=== PATIENT | female | born 1995 | race African-American/Black ===

== ENCOUNTER 2022-11-27 14:25 | Emergency (ER) | payer BC, SELFPAY ==
[2022-11-27 14:46] VITALS: BP 132/70; PULSE 76; RESP 16; TEMP 36.8; O2SAT 100
[2022-11-27 14:59] VITALS: BP 132/70; PULSE 76; RESP 16; TEMP 36.8; O2SAT 100
--- NOTE | 2022-11-27 15:26 | ED.WOUNDLAC ---
HPI - Wound/Laceration General Chief Complaint: Wound/Laceration Stated Complaint: Bee sting Time Seen by Provider: 11/27/22 15:27 Source: patient Mode of arrival: ambulatory Limitations: no limitations History of Present Illness HPI narrative: 27-year-old female presented for complaint of left hand swelling after she was stung by bee today. Stung near the wrist. She took benadryl, and swelling is better. Patient showed pictures from immediately after the sting and has notable swelling with raised area at center. Patient reports tenderness and difficulty making fist due to the swelling. Denies numbness, tingling, weakness of the extremities. She denies lip, tongue, throat swelling or itching, shortness of breath or wheezing, nausea or vomiting. Related Data Allergies Allergy/AdvReac Type Severity Reaction Status Date / Time No Known Allergies Allergy Unverified 11/27/22 14:36 Review of Systems Review of Systems: CONSTITUTIONAL: Denies body aches, fever, chills, or sweats. EYES: Denies visual changes, redness, or discharge. ENT: Denies rhinorrhea, congestion CARDIOVASCULAR: Denies chest pain, palpitations, or edema. RESPIRATORY: Denies cough or dyspnea. GASTROINTESTINAL: Denies abdominal pain, nausea, vomiting, or diarrhea. SKIN: Per HPI MUSCULOSKELETAL: Denies back pain, joint pain, or myalgia. NEUROLOGIC: Denies headache, numbness, tingling, or weakness. [facility] Past Medical History Medical History (Updated 11/27/22 @ 16:39 by Nani Fisher, HE) No pertinent past medical history Comments At time of signature, I have reviewed and agree with nursing past medical, surgical, social and family history unless otherwise noted. Please see nursing chart for further information. There is no relevant family history pertinent to the presenting complaint Exam Narrative: GENERAL: Well-appearing HEAD: Normocephalic, atraumatic. EYES: conjunctivae clear, and EOMI. ENT: Mucous membranes moist. Oropharynx without edema, erythema or lesions. NECK: Supple. No lymphadenopathy CHEST: Clear to auscultation. HEART: Regular rate and rhythm. SKIN: Warm, dry. Left hand swelling around the 1st metacarpal to web space between the 1st and 2nd metacarpals, mild erythema, center has approx 2mm raised pink vesicle, no stinger in place, site is tender EXT: decreased ROM to left hand, unable to make fist due to pain/swelling, sensation and circulation normal NEURO: Alert and oriented x3. Course Course Emergency Course: Patient is aware of diagnosis, understands and agrees to treatment plan. Anticipatory guidance given. Patient agrees to follow-up as directed and is aware of reasons to seek care at the emergency department. Portions of this record may have been created with voice recognition software Level of Care: Express Care Visit Vital Signs Vital signs: Vital Signs Temperature 98.2 F 11/27/22 14:46 Pulse Rate 76 11/27/22 14:46 Respiratory Rate 16 11/27/22 14:46 Blood Pressure 132/70 11/27/22 14:46 Pulse Oximetry 100 11/27/22 14:46 Oxygen Delivery Room Air 11/27/22 14:46 Temperature 98.2 F 11/27/22 14:59 Pulse Rate 76 11/27/22 14:59 Respiratory Rate 16 11/27/22 14:59 Blood Pressure 132/70 11/27/22 14:59 Pulse Oximetry 100 11/27/22 14:59 Oxygen Delivery Room Air 11/27/22 14:59 Reviewed MDM - Wound/Laceration MDM Narrative Medical decision making narrative: Discussed physical exam findings. Ice pack provided. Will send prescription for antibiotic and steroid. Advised supportive measures and signs/symptoms to go to the ER. Pt is appropriate for outpt treatment and f/u. Differential Diagnosis Differential diagnosis: Likely abscess and other (insect sting, insect bite, cellulitis) Discharge Plan Discharge Clinical Impression: Insect sting Patient Disposition: Home, Self-Care Condition: Stable Instructions: Antibiotic Form, Insect Bite or Sting
== END 2022-11-27 15:41 | disposition home or self-care (01) ==
PROVIDERS: Emergency Provider Nurse Practitioner Family
DX: T63.441A Toxic effect of venom of bees, accidental (unintentional), initial encounter (principal)
CPT/HCPCS: 99213; G0463

== ENCOUNTER 2024-07-29 20:35 | Emergency (ER) | payer BC, SELFPAY ==
--- OUTSIDE RECORDS SUMMARY | 2024-07-29 20:37 | XMS_ITS | Clinical Summary ---
Author Organization [facility] Address [address] [place] [address] Care Team Providers Care Aircraft Mechanic Name Role Phone Unavailable Primary Care Provider Unavailabl e Allergies No known active allergies Medications No known medications Active Problems No known active problems Family History Medical History Relation Name Comments Breast Cancer Mother Anita Viveros Twice Relation Name Status Comments Mother Anita Viveros Social History Tobacco Use Types Packs/Day Years Used Date Smoking Tobacco: Never Smokeless Tobacco: Never Tobacco Cessation:Counseling Given: Not Answered Alcohol Use Standard Drinks/Week Comments Yes 0 (1 standard drink = 0.6 oz pur e alcohol) Social drinker Comments No Sex and Gender Information Value Date Recorded Sex Assigned at Not on file Legal Sex Female 11:30 AM ONCOLOGY TRANSPLANT NETWORK MANAGER Gender Identity Not on file Sexual Orientation Not on file Last Filed Vital Signs Vital Sign Reading Time Taken Comments Blood Pressure 108/76 07/31/2022 8:15 AM ONCOLOGY TRANSPLANT NETWORK MANAGER Pulse 86 07/31/2022 8:15 AM ONCOLOGY TRANSPLANT NETWORK MANAGER Temperature - - Respiratory Rate - - Oxygen Saturation 99% 07/31/2022 8:15 AM ONCOLOGY TRANSPLANT NETWORK MANAGER Inhaled Oxygen Concentration - - Weight 88 kg (194 lb) 07/31/2022 8:15 AM ONCOLOGY TRANSPLANT NETWORK MANAGER Height 162.6 cm (5' 4 ) 07/31/2022 8:15 AM ONCOLOGY TRANSPLANT NETWORK MANAGER Body Mass Index 33.3 07/31/2022 8:15 AM ONCOLOGY TRANSPLANT NETWORK MANAGER Plan of Treatment Health Maintenance Due Date Last Done Comments DTAP/TDAP/TD VACCINES (1 - Tdap) 01/08/2012 HEPATITIS B VACCINES (1 of 3 - 19+ 3-dose series) 01/08/2012 INFLUENZA VACCINE (#1) 2024 CERVICAL CANCER SCREENING 07/31/2025 07/31/2022 HPV VACCINES Aged Out No longer eligi ble based on patient's age to complete this topic PNEUMOCOCCAL VACCINE 0-64 YEARS Aged Out No longer eligible based on patient's age to complete this topic Procedures Procedure Name Priority Date/Time Associated Diagnosis Comments CERV/VAG CYTO AGE BASED SCREEN PAP W CT/NG, TRICH Routine 07/31/2022 9:02 AM ONCOLOGY TRANSPLANT NETWORK MANAGER Well woman exam with routine gynecological exam from Last 3 Months or Most Recently Relevant to Health Maintenance Results * (ABNORMAL) CERV/VAG CYTO AGE BASED SCREEN PAP W CT/NG, TRICH (07/31/2022 9:02 AM ONCOLOGY TRANSPLANT NETWORK MANAGER) COMMENT (PAP): [facility] Comment: This order for age-based cervical cancer and STI screening follows ACOG guidelines(PB 168, 140, YYA648). See individual assays for performing site location. CLINICAL INFORMATION [facility] Comment:None given LAST MENSTRUAL PERIOD [facility] [place] Comment:NONE GIVEN PREV PAP: [facility] [place] Comment:NONE GIVEN PREV BX: [facility] [place] Comment:NONE GIVEN SOURCE [facility] [place] Comment:Endocervix ADEQUACY: [facility] [place] Comment: Satisfactory for evaluation. Endocervical/transformation zone component present. Age and/or menstrual status not provided GENERAL CATEGORIZATION: (A) [facility] [place] Comment:EPITHELIAL CELL ABNO RMALITY PAP INTERP (A) [facility] [place] Comment: Atypical Squamous Cells of Undetermined Significance (ASC-US) COMMENT (PAP TEST) [facility] Comment: This Pap test has been evaluated with computer assisted technology. Suggest clinical correlation and follow-up as clinically appropriate FUR LINER: Bree Castillo- [facility] Comment: MMW, CT(ASCP) CT screening location: [place] [address] Administration HARJIT [facility] PATHOLOGIST Marilia [employer]Myla Archer Comment: Ilia Reed M.D., Board Certified in Anatomic Pathology and Cytopathology. (electronic signature) EXPLANATORY NOTE Que [facility]os[facility]yla [facility] Comment: EXPLANATORY NOTE: The Pap is a screening test for cervical cancer. It is not a diagnostic test and is subject to false negative and false positive results. It is most reliable when a satisfactory sample, regularly obtained, is submitted with relevant clinical findings and history, and when the Pap result is evaluated along with historic and current clinical information. HPV E6/E7 Not Detected Not Detected [facility] Comment: Methodology: Jar Filler-Mediated Amplification This assay detects E6/E7 viral messenger RNA (mRNA) from 14 high-risk HPV types (16,18,31,33,35,39,45,51,52,56,58,59,66,68). Cervical sources are required for HPV testing. If a vaginal source from a patient who has had a total hysterectomy with removal of cervix was submitted, please contact the testing laboratory for alternative testing options. For additional information, please refer to http://Application Craft.Pressi/faq/SDX870q5 (This link if provided for information/ educational purposes only.) C TRAC RNA NOT DETECTED NOT DETECTED [facility] N.GONORRHOEAE RNA, TMA NOT DETECTED NOT DETECTED [facility] COMMENT INFECTIOUS DISEASE [facility] Comment: The analytical performance characteristics of this assay, when used to test SurePath(TM) specimens have been determined by [facility]. The modifications have not been cleared or approved by the FDA. This assay has been validated pursuant to the CLIA regulations and is used for clinical purposes. For additional information, please refer to https://Application Craft.Pressi/faq/ZKM248 (This link is being provided for information/ educational purposes only.) TRICHOMONAS VAGINALIS,QUALITAT ARLEY,PAP VIAL NOT DETECTED NOT DETECTED [facility] [place] Comment: The analytical performance characteristics of this assay have been determined by [facility]. The modifications have not been cleared or approved by the FDA. This assay has been validated pursuant to the CLIA regulations and is used for clinical purposes. For additional information, please refer to http://Application Craft.Pressi/ faq/Trichomonastma (This link is being provided for information/ educational purposes only.) Test Performed at: [facility] [address] ??[id number] Wing [facility] Gen[facility] SWAB OF ENDOCERVIX / Unknown 07/31/2022 9:02 AM ONCOLOGY TRANSPLANT NETWORK MANAGER 08/01/2022 3:48 AM ONCOLOGY TRANSPLANT NETWORK MANAGER us Alba Pablo DO PATHOLOGY/CYTOLOGY ORD ERABLES Final Result [facility] [phone] [facility] [address] [place] [address] from Last 3 Months or Most Recently Relevant to Health Maintenance Insurance BC[employer] BLUE PREFERRED
--- OUTSIDE RECORDS SUMMARY | 2024-07-29 20:37 | XMS_ITS | Patient Health Summary ---
Author Organization [facility] Address [address] [place] [address] Care Team Providers Care Turn Down Attendant Name Role Phone Tyrese Daniel MD Primary Care Provider [phone]- [phone] Note from [facility] [place],non-owned Affiliates and Associated Physician Practices is amultiple site organization consisting of ambulatory clinics and hospital sitesin [place], [place], [place] and [place]. This disclosure is being madepursuant to the Care Everywhere program and may not contain all information available regarding this patient. Last updated 18.[facility] Allergies No known active allergies Medications * Be aware that medications may not be up to date on this document. Alwaysverify current medications with the patient. * norelgestromin-ethinyl estradiol (ORTHO-EVRA) 150-20 MCG/24HR patch(Started 06/17/2012) Apply 1 Patch to skin every 7 days. Leave off for one week. Repeat. No additional refills unless seen in office. 6 refills left Active Problems Problem Noted Date Diagnosed Date Obesity 06/17/2012 PCOS (polycystic ovarian syndrome) 05/08/2010 Social History Tobacco Use Types Packs/Day Years Used Date Smoking Tobacco: Never Assessed Sex and Gender Information Value Date Recorded Sex Assigned at Not on file Gender Identity Not on file Sexual Orientation Not on file Last Filed Vital Signs Vital Sign Reading Time Taken Comments Blood Pressure 110/70 06/17/2012 12:00 AM DOCUMENTUM CONSULTANT Pulse - - Temperature - - Respiratory Rate - - Oxygen Saturation - - Inhaled Oxygen Concentration - - Weight 70.9 kg (156 lb 6.4 oz) 06/17/2012 12:00 AM DOCUMENTUM CONSULTANT Height 159.8 cm (5' 2.91 ) 06/17/2012 12:[address] Body Mass Index 27.78 06/17/2012 12:00 AM DOCUMENTUM CONSULTANT Procedures * CHLAMYDIA + GC AMPLIFIED PROBE(Performed 06/17/2012) Performed for Risky sexual behavior * CBC W AUTO DIFFERENTIAL(Performed 09/27/2009) Results * CHLAMYDIA + GC AMPLIFIED PROBE (06/17/2012 3:21 PM DOCUMENTUM CONSULTANT) Chlamydia Amplified Probe Negative Negative 06/19/2012 12:31 PM DOCUMENTUM CONSULTANT [facility] GC Amplified Probe Negative Negative 06/19/2012 12:31 PM DOCUMENTUM CONSULTANT [facility] Urine specimen (specimen) URINE / Unknown 06/17/2012 3:21 PM DOCUMENTUM CONSULTANT 06/17/2012 3:28 PM DOCUMENTUM CONSULTANT Liudmila Patel MD LAB - MICROBIO LOGY ORDERABLES Performing Organization Address City/State/[facility] Co de Phone Number [facility] [place] [address] * (ABNORMAL) CBC W AUTO DIFFERENTIAL (09/27/2009 1:30 PM CDT) Pathologist [facility] WBC 8.57 4.5 - 14.5 K/cumm [facility] RBC 4.03(L) 4.10 - 5.10 mill/cumm [facility] Hemoglobin 12.1 12.0 - 16.0 gm/dl [facility] Hematocrit 34.5(L) 36.0 - 47.0 % [facility] MCV 85.6 78.0 - 102.0 cu microns [facility] MCH 30.0 25.0 - 35.0 uug [facility] MCHC 35.1 31.0 - 37.0 % [facility] RDW 12.7 % [facility] MPV 12.4 fl [facility] Platelet Count 242 100 - 400 K/cumm [facility] Granulocytes % 64.5 24 - 66 % [facility] Lymphocytes % 28.9 22 - 61 % [facility] Monocytes % 5.0 3 - 15 % [facility] Eosinophils % 1.2 0 - 10 % [facility] Basophils % 0.4 0 - 1 % [facility] Comment Manual Diff Automated Diff Performed [facility] BLOOD SPECIMEN / Unknown 09/27/2009 1:30 PM CDT Liudmila Patel MD LAB - HEMATOLO GY ORDERABLES Performing Organization Address [facility]/State/[facility] Co de Phone Number [facility] Care Teams Turn Down Attendant Relationship Specialty Start Date End Date Tyrese Daniel MD [address] [place] [address] PCP - General 09/27/09
--- OUTSIDE RECORDS SUMMARY | 2024-07-29 20:37 | XMS_ITS | Clinical Summary ---
Author Organization [facility] Address [address] [address] Care Team Providers Care Talent Advisor Name Role Phone Tyrese Daniel MD Primary Care Provider [phone]- [phone] Source Comments [facility],non-owned Affiliates and Associated Physician Practices is amultiple site organization consisting of ambulatory clinics and hospital sitesin [place], [place], [place] and [place]. This disclosure is being madepursuant to the Care Everywhere program and may not contain all information available regarding this patient. Last updated 18.[facility] Allergies No known active allergies Medications * Be aware that medications may not be up to date on this document. Alwaysverify current medications with the patient. Medication Sig Dispensed Refills Start Date End Date Status norelgestromin-ethin yl estradiol (ORTHO-EVRA) 150-20 MCG/24HR patchIndications:PCO S (polycystic ovarian syndrome) Apply 1 Patch to skin every 7 days. Leave off for one week. Repeat. No additional refills unless seen in office. 3 Patch 6 06/17/2012 Active Active Problems Problem Noted Date Diagnosed Date Obesity 06/17/2012 PCOS (polycystic ovarian syndrome) 05/08/2010 Overview (05/22/2011): Sybil Perez is a 16 yo F w/ significant medical history of PCOS came to adolescent clinic for refil of Ortho-Evra. No significant history indicating adverse effects of hormonal contraception. Physical exam is unremarkable. Plan: - Refilled Ortho-Evra up to the month of October 2011 as patient will be staying at [facility]. - Counseled about warning signs/adverse effects of Ortho- Evra and [facility] if required. Family History Medical History Relation Name Comments Diabetes Maternal Grandfather Diabetes Maternal Grandmother Relation Name Status Comments Maternal Grandfather Maternal Grandmother Social History Tobacco Use Types Packs/Day Years Used Date Smoking Tobacco: Never Assessed Sex and Gender Information Value Date Recorded Sex Assigned at Not on file Gender Identity Not on file Sexual Orientation Not on file Last Filed Vital Signs Vital Sign Reading Time Taken Comments Blood Pressure 110/70 06/17/2012 12:00 AM SPEED WINDER Pulse - - Temperature - - Respiratory Rate - - Oxygen Saturation - - Inhaled Oxygen Concentration - - Weight 70.9 kg (156 lb 6.4 oz) 06/17/2012 12:00 AM SPEED WINDER Height 159.8 cm (5' 2.91 ) 06/17/2012 12:[address] Body Mass Index 27.78 06/17/2012 12:00 AM SPEED WINDER Plan of Treatment Health Maintenance Due Date Last Done Comments PAP SMEAR 1993 HIV SCREENING 01/08/2008 HEPATITIS C SCREENING 01/03/2011 DTAP/TDAP/TD VACCINES (1 - Tdap) 01/08/2012 HEPATITIS B VACCINE (1 of 3 - 19+ 3-dose series) 01/08/2012 COVID-19 VACCINE ( - 2023-2 5 season) 2024 INFLUENZA VACCINE (#1) 2024 DEPRESSION SCREENING 06/30/2024 ZOSTER VACCINE (1 of 2) 2043 HIB VACCINE Aged Out No longer eligi ble based on patient's age to complete this topic HPV VACCINE Aged Out No longer eligi ble based on patient's age to complete this topic MENINGOCOCCAL (Group B) VACCINE Aged Out No longer eligible based on patient's age to complete this topic MENINGOCOCCAL VACCINE Aged Out No marycarmen savanah eligible based on patient's age to complete this topic PNEUMOCOCCAL VACCINE Aged Out No long er eligible based on patient's age to complete this topic Care Teams Talent Advisor Relationship Specialty Start Date End Date Tyrese Daniel MD [address] [place] [address] PCP - General 09/27/09
--- OUTSIDE RECORDS SUMMARY | 2024-07-29 20:37 | XMS_ITS | Referral Summary ---
Author Organization [facility] Address [address] [place] [address] Care Team Providers Care Cocktail Waitress Name Role Phone Tyrese Daniel MD Primary Care Provider +1- [phone] [facility],non-owned Affiliates and Associated Physician Practices is amultiple site organization consisting of ambulatory clinics and hospital sitesin [place], [place], [place] and [place]. This disclosure is being madepursuant to the Care Everywhere program and may not contain all information available regarding this patient. Last updated 18.[facility] Allergies No known active allergies Medications * [...] 2011 as patient will be staying at [place] [facility] [employer]. - Counseled about warning signs/adverse effects of Ortho- Evra and consult the [facility] if required. Social History Tobacco Use Types Packs/Day Years Used Date Smoking Tobacco: Never Assessed Sex and Gender Information Value Date Recorded Sex Assigned at Not on file Gender Identity Not on file Sexual Orientation Not on file Last Filed Vital Signs Vital Sign Reading Time Taken Comments Blood Pressure 110/70 06/17/2012 12:00 AM REFRIGERATING ENGINEER Pulse - - Temperature - - Respiratory Rate - - Oxygen Saturation - - Inhaled Oxygen Concentration - - Weight 70.9 kg (156 lb 6.4 oz) 06/17/2012 12:00 AM REFRIGERATING ENGINEER Height 159.8 cm (5' 2.91 ) 06/17/2012 12:[address] Body Mass Index 27.78 06/17/2012 12:00 AM REFRIGERATING ENGINEER Plan of Treatment Not on file Care Teams Cocktail Waitress Relationship Specialty Start Date End Date Tyrese Daniel MD [address] [place], [place] [id number] PCP - General 09/27/09
--- OUTSIDE RECORDS SUMMARY | 2024-07-29 20:38 | XMS_ITS | Clinical Summary ---
Author Organization [facility] Address [facility] [facility] [place], [place] [address] [place] [address] Care Team Providers Care Internal Controls Specialist Name Role Phone Chantale, Estefany Nadira MATTHEWS Primary Care Provider Allergies No known active allergies Medications fluticasone propionate 50 MCG/ACT nasal spray 0 03/05/2019 Active cetirizine 10 MG chewable tablet Chew 10 mg by mouth daily. Active Family History Medical History Relation Comments Cancer Mother Relation Status Comments Mother Social History Tobacco Use Types Packs/Day Years Used Date Smoking Tobacco: Never Alcohol Use Standard Drinks/Week Comments No 0 (1 standard drink = 0.6 oz pur e alcohol) AUDIT-C Answer Date Recorded Frequency of Alcohol Consumption Never 03/11/2019 Average Number of Drinks Not on file 019 Frequency of Binge Drinking Not on file 02/28 Comments No Sex and Gender Information Value Date Recorded Sex Assigned at Not on file Legal Sex Female 8:26 PM CDT Gender Identity Not on file Sexual Orientation Not on file Last Filed Vital Signs Vital Sign Reading Time Taken Comments Blood Pressure 131/95 08/05/2019 4:26 PM LASER BEAM COLOR SCANNER OPERATOR Pulse 78 08/05/2019 4:26 PM LASER BEAM COLOR SCANNER OPERATOR Temperature 36.8 ??C (98.3 ??F) 08/05/2019 4:26 PM CS T Respiratory Rate 20 08/05/2019 4:26 PM LASER BEAM COLOR SCANNER OPERATOR Oxygen Saturation 99% 08/05/2019 4:26 PM LASER BEAM COLOR SCANNER OPERATOR Inhaled Oxygen Concentration - - Weight 83 kg (182 lb 15.7 oz) 08/05/2019 4:26 PM LASER BEAM COLOR SCANNER OPERATOR Height 162.6 cm (5' 4 ) 08/05/2019 4:26 PM LASER BEAM COLOR SCANNER OPERATOR Body Mass Index 31.41 08/05/2019 4:26 PM LASER BEAM COLOR SCANNER OPERATOR Plan of Treatment Health Maintenance Due Date Last Done Comments Cervical Cancer Screening Pa p Smear (Age 30 to 64) Every 3 Years 1993 Annual Physical 01/08/1996 Hepatitis C 2011 DTaP, Tdap and Td Vaccines ( 1 - Tdap) 01/08/2012 Hepatitis B Vaccines (1 of 3 - 19+ 3-dose series) 01/08/2012 Cervical Cancer Screening Pa p with HPV Testing (Age 30 to 64) Every 5 Years 2023 Cervical Cancer Screening with HPV 2023 COVID-19 Vaccine ( - 2023-2 5 season) 2024 Influenza Adult (#1) 2024 HPV Vaccines Aged Out No longer eligi ble based on patient's age to complete this topic Meningococcal B Vaccine Aged Out No l onger eligible based on patient's age to complete this topic Meningococcal Vaccine Aged Out No marycarmen savanah eligible based on patient's age to complete this topic Pneumococcal Vaccine: Pediat rics (0 to 5 Years) and At-Risk Patients (6 to 64 Years) Aged Out No longer eligible b ased on patient's age to complete this topic RSV Immunizations Under 20 Months Aged Out No longer eligible based on patient's age to complete this topic [place] [address] [place] [address] MEDICAL REIMBURSEMENTS OF CANDELARIA Care Teams Internal Controls Specialist Relationship Specialty Start Date End Date Estefany Kenyon DO [address] [place] [address] PCP - General INTERNAL MEDICINE 03/11/19
--- OUTSIDE RECORDS SUMMARY | 2024-07-29 20:38 | XMS_ITS | Clinical Summary ---
Author Organization [facility] Address [address] [place] [address] Care Team Providers Care Shipper Receiver Name Role Phone [place] ParkEstefany davis Camryn MATTHEWS Primary Care Provider [phone] Allergies No known active allergies Medications fluconazole (DIFLUCAN) 150 mg tablet Take 1 tablet on day one and take the second tablet 3 days later. 2 tablet 0 Active Additional Information Patient not taking.Reported on 09/26/2021 cetirizine (ZyrTEC) 10 mg chewable tablet Take 10 mg by mouth daily Active fluticasone propionate (FLONASE) 50 mcg/actuation nasal spray Administer 1 spray into each nostril daily as needed 9 Active cephalexin (KEFLEX) 500 mg capsule Take 1 capsule (500 mg total) by mouth 2 (two) times a day 14 capsule 1 Active Additional Information Patient not taking.Reported on 09/26/2021 HYDROcodone-symone taminophen (NORCO) 5-325 mg per tabletIndicatio ns:Pain Take 1 tablet by mouth every 6 (six) hours as needed for pain 12 tablet 1 Active Additional Information Patient not taking.Reported on 09/26/2021 Active Problems No known active problems Immunizations Name Administration Dates Next Due Tdap 02/28/2021 Family History Medical History Relation Name Comments Breast cancer Maternal cousin Breast cancer Mother Hypertension Mother Breast cancer Paternal cousin Relation Name Status Comments Father Alive Maternal cousin Mother Alive survivor x2; di agnosed in 50s Paternal cousin Social History Tobacco Use Types Packs/Day Years Used Date Smoking Tobacco: Never Smokeless Tobacco: Never Alcohol Use Standard Drinks/Week Comments Yes 0 (1 standard drink = 0.6 oz pur e alcohol) AUDIT-C Answer Date Recorded Q1: How often do you have a drink containing alc ohol? 2-4 times a month 09/26/2021 Q2: How many drinks containi ng alcohol do you have on a typical day when you are drinking? 1 or 2 09/26/2021 Q3: How often do you have si x or more drinks on one occasion? 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 Gender Identity Not on file Sexual Orientation Not on file Obstetrics History Para Term AB IAB SAB Ectopic Multiple Livin g Live Births 0 0 0 0 0 0 0 0 0 0 0 Last Filed Vital Signs Vital Sign Reading Time Taken Comments Blood Pressure 131/91 10/05/2021 10:10 AM CDT Pulse 91 10/05/2021 10:10 AM CDT Temperature 36.4 ??C (97.5 ??F) 10/05/2021 10:10 AM C DT Respiratory Rate 16 10/05/2021 10:10 AM CDT Oxygen Saturation 99% 10/05/2021 10:10 AM CDT Inhaled Oxygen Concentration - - Weight 82.7 kg (182 lb 6.4 oz) 10/05/2021 6:59 A M CDT Height 162.6 cm (5' 4 ) 10/05/2021 6:59 AM CDT Body Mass Index 31.31 10/05/2021 6:59 AM CDT Plan of Treatment Health Maintenance Due Date Last Done Comments Cervical Cancer Screening 1993 Depression Screening 1993 Hepatitis C Screening 1993 Varicella Vaccines (1 of 2 - 13+ 2-dose series) 2006 Regular Well Visit/Exam 18-64 11/10/2021 11/10/2020, 11/09/2019 Influenza Vaccine (#1) 2024 05/05/2019, 2009 DTaP/Tdap/Td Vaccine (7 - Td or Tdap) 02/28/2031 02/28/2021, 01/24/2003, 04/22/1994, Additional history exists HPV Vaccines Completed 08/03/2009, 02/28, 12/29/2008 Pneumococcal vaccine <65 Aged Out No longer eligible based on patient's age to complete this topic [place] Care Teams Shipper Receiver Relationship Specialty Start Date End Date Estefany Kenyon DO [address] [place] [address] PCP - General Internal Medicine 11/04/19
--- OUTSIDE RECORDS SUMMARY | 2024-07-29 20:38 | XMS_ITS | Referral Summary ---
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 [place] [employer] [place] Care Teams Reinforcing Steel Placer Relationship Specialty Start Date End Date Estefany Kenyon DO [address] [place] [address] PCP - General Internal Medicine 11/04/19
--- OUTSIDE RECORDS SUMMARY | 2024-07-29 20:38 | XMS_ITS | Encounter Summary ---
Author Organization [facility] Address [facility] [place], [place] [address] [place] [address] Care Team Providers Care Specification Consultant Name Role Phone Karen Hurtado MD Primary Care Provider Unavailable Estefany Kenyon DO Primary Care Provider [phone] Encounter Details Date Type Department Care Team (Late st Contact Info) Description 05/03/2017 Abstract [place] [address] Karen Hurtado MD Social History Tobacco Use Types Packs/Day Years Used Date Smoking Tobacco: Never Assessed Comments Unknown Sex and Gender Information Value Date Recorded Sex Assigned at Not on file Legal Sex Female 8:26 PM CDT Gender Identity Not on file Sexual Orientation Not on file documented as of this encounter Plan of Treatment Not on file documented as of this encounter Visit Diagnoses Not on filedocumented in this encounter Care Teams Specification Consultant Relationship Specialty Start Date End Date Karen Hurtado MD PCP - General 01/17/15 Estefany Kenyon DO [address] [place] [id number] PCP - General INTERNAL MEDICINE 03/11/19 documented as of this encounter
[2024-07-29 21:08] VITALS: BP 143/83; PULSE 134; RESP 16; TEMP 37.1; O2SAT 97
[2024-07-29 21:54] LABS: Influenza A QL RT-PCR Positive (Negative); Influenza B QL RT-PCR Negative (Negative); RSV RNA, RT-PCR Negative (Negative); SARS-CoV-2 RNA PCR Negative (Negative)
[2024-07-29 22:39] VITALS: BP 139/52; PULSE 121; RESP 18; TEMP 36.7; O2SAT 96
--- NOTE | 2024-07-29 22:54 | ED_ITS ---
HPI - URI/Sore Throat General Chief Complaint: Upper Respiratory Infection Stated Complaint: body aches, chills, cough Time Seen by Provider: 07/29/24 22:52 Source: patient Mode of arrival: ambulatory Limitations: no limitations History of Present Illness HPI Narrative: This is a 29-year-old female who presents to the ED for chief complaint of flu- like symptoms beginning earlier this evening. Patient reports fever, cough, body ache, chills. 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 States that yesterday she was feeling okay but started with a cough this morning. Related Data Allergies Allergy/AdvReac Type Severity Reaction Status Date / Time No Known Allergies Allergy Unverified 11/27/22 14:36 Review of Systems Review of Systems: All systems as dictated in HPI [facility] Past Medical History Medical History (Updated 07/29/24 @ 23:02 by Tomasz Escobar PA-C) No pertinent past medical history Exam Narrative: GENERAL: Well-appearing, well-nourished, and in no acute distress. HEAD: Normocephalic, atraumatic. EYES: PERRLA and EOMI. ENT: Nares clear, no rhinorrhea or epistaxis. Mucous membranes moist. Oropharynx without tonsillar hypertrophy exudate or other lesions. NECK: Supple. No adenopathy or masses. CHEST: No respiratory distress. Clear to auscultation. No wheezes rales or rhonchi HEART: Mildly tachycardic rate. Regular rhythm. No murmur heard. Normal peripheral pulses. ABDOMEN: Soft, nontender, nondistended, normal active bowel sounds. MSK: Normal range of motion. No edema. SKIN: Warm, dry, no rash. NEURO: Alert and oriented x4. No focal deficits. PSYCH: Normal mood and affect. Course Vital Signs Vital signs: Vital Signs Temperature 98.7 F 07/29/24 21:08 Pulse Rate 134 H 07/29/24 21:08 Respiratory Rate 16 07/29/24 21:08 Blood Pressure 143/83 H 07/29/24 21:08 Pulse Oximetry 97 07/29/24 21:08 Temperature 98.1 F 07/29/24 22:39 Pulse Rate 108 H 07/29/24 23:51 Respiratory Rate 16 07/29/24 23:51 Blood Pressure 139/52 L 07/29/24 22:39 Pulse Oximetry 99 07/29/24 23:51 Oxygen Delivery Room Air 07/29/24 23:50 MDM - URI/Sore Throat MDM Narrative Medical decision making narrative: This is a 29-year-old female who presents to the ED for chief complaint of fevers, chills, flu-like symptoms. Vitals show elevated heart rate of 134 on arrival. Otherwise vitals are normal. Exam remarkable for the above Viral swabs are positive for influenza A. Patient was given IV fluids, Toradol and acetaminophen here with good relief of symptoms. Presentation consistent with influenza. Patient will be discharged in stable condition. Supportive measures discussed and return precautions given. Patient is understanding and agreeable with plan for discharge with PCP follow-up. Lab Data Labs: Lab Results 07/29/24 Range/Units 21:08 Influenza A (RT-PCR) Positive A (Negative) Influenza B (RT-PCR) Negative (Negative) RSV (RT-PCR) Negative (Negative) SARS-CoV-2 RNA (RT-PCR) Negative (Negative) Discharge Plan Discharge Clinical Impression: Influenza Patient Disposition: Home, Self-Care Condition: Stable Instructions: Antibiotic Form, Influenza (ED) Additional Instructions: Your exam and workup today show influenza a test is positive. Please take Tamiflu as instructed. Continue with Tylenol and ibuprofen for symptomatic control as well. If you have any new or worsening symptoms please return to the ER for further evaluation. Patient Language: Amharic Prescriptions: New oseltamivir 75 mg capsule 75 mg PO Q12H 5 Days Qty: 10 0RF No Action prednisone 20 mg tablet 40 mg PO DAILY 4 Days Qty: 8 0RF cephalexin 500 mg capsule 500 mg PO Q12H 5 Days Qty: 10 0RF Follow-up/Referrals: Chantale,Estefany Muir DO [Primary Care Provider] - Stand Alone Forms: Work/School Release IP Time of Disposition: 00:20
--- OUTSIDE RECORDS SUMMARY | 2024-07-29 23:02 | XMS_ITS | Referral Summary ---
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
--- OUTSIDE RECORDS SUMMARY | 2024-07-29 23:02 | XMS_ITS | Clinical Summary ---
Author Organization [facility] Address [address] [place] [address] Care Team Providers Care Railway Signal Electrician Name Role Phone [place] PointsEstefany davis Camryn MATTHEWS Primary Care Provider [phone]- [phone] Allergies No known active allergies Medications fluconazole [...] on file Legal Sex Female 6:16 PM SUPERVISOR RESEARCH KENNEL Gender Identity Not on file Sexual Orientation [...] patient's age to complete this topic Insurance DOZ MT DOZ MT DOZ MT Care Teams Railway Signal Electrician Relationship Specialty Start Date End Date Estefany Kenyon DO [address] [place] [address] PCP - General Internal Medicine 11/04/19
--- OUTSIDE RECORDS SUMMARY | 2024-07-29 23:02 | XMS_ITS | Encounter Summary ---
Author Organization [facility] Address [facility] [place], [place] [address] [place] [address] Care Team Providers Care Spice Mixer Name Role Phone Karen Hurtado MD Primary Care Provider Unavailable Estefany Kenyon DO Primary Care Provider [phone] Encounter Details Date Type Department Care Team (Late st Contact Info) Description 05/03/2017 [place] [address] Karen Hurtado MD Social History [...] on filedocumented in this encounter Care Teams Spice Mixer Relationship Specialty Start Date End Date Karen Hurtado MD PCP - General 01/17/15 Estefany Kenyon DO [address] [place] [phone] PCP - General INTERNAL MEDICINE 03/11/19 documented as of this encounter
--- OUTSIDE RECORDS SUMMARY | 2024-07-29 23:02 | XMS_ITS | Referral Summary ---
Author Organization [facility] [employer] Address [address] [place] [address] Care Team Providers Care Equipment Operator/Laborer/Supervisor Name Role Phone Tyrese Daniel MD Primary Care Provider [phone] Source Comments [facility] [employer],non-owned Affiliates and Associated Physician Practices is amultiple site organization consisting of ambulatory clinics and hospital sitesin [place], [place], [place] and [place]. This disclosure is being madepursuant to the Care Everywhere program and may not contain all information available regarding this patient. Last updated 18.[employer] Allergies No known active allergies Medications * [...] 2011 as patient will be staying at [place] for Retrophin. - Counseled about warning signs/adverse effects of [...] Comments Blood Pressure 110/70 06/17/2012 12:00 AM CLOTH WINDING SUPERVISOR Pulse - - Temperature - - Respiratory Rate - - Oxygen Saturation - - Inhaled Oxygen Concentration - - Weight 70.9 kg (156 lb 6.4 oz) 06/17/2012 12:00 AM CLOTH WINDING SUPERVISOR Height 159.8 cm (5' 2.91 ) 06/17/2012 12:[address] Body Mass Index 27.78 06/17/2012 12:00 AM CLOTH WINDING SUPERVISOR Plan of Treatment Not on file Care Teams Equipment Operator/Laborer/Supervisor Relationship Specialty Start Date End Date Tyrese Daniel MD [address] [place], [place] [id number] PCP - General 09/27/09
--- OUTSIDE RECORDS SUMMARY | 2024-07-29 23:02 | XMS_ITS | Patient Health Summary ---
Author Organization [facility] [employer] Address [address] [place] [address] Care Team Providers Care Salt Cutter Name Role Phone Tyrese Daniel MD Primary Care Provider [phone] Note from [facility],non-owned Affiliates and Associated Physician Practices is amultiple site organization consisting of ambulatory clinics and hospital sitesin [place], [place], [place] and [place]. This disclosure is being madepursuant to the Care Everywhere program and may not contain all information available regarding this patient. Last updated 18.[facility] [employer] Allergies No known active allergies Medications * [...] Comments Blood Pressure 110/70 06/17/2012 12:00 AM BOILER SETTER Pulse - - Temperature - - Respiratory Rate - - Oxygen Saturation - - Inhaled Oxygen Concentration - - Weight 70.9 kg (156 lb 6.4 oz) 06/17/2012 12:00 AM BOILER SETTER Height 159.8 cm (5' 2.91 ) 06/17/2012 12:[address] Body Mass Index 27.78 06/17/2012 12:00 AM BOILER SETTER Procedures * CHLAMYDIA + GC AMPLIFIED PROBE(Performed 06/17/2012) Performed for Risky sexual behavior * CBC W AUTO DIFFERENTIAL(Performed 09/27/2009) Results * CHLAMYDIA + GC AMPLIFIED PROBE (06/17/2012 3:21 PM BOILER SETTER) Chlamydia Amplified Probe Negative Negative 06/19/2012 12:31 PM BOILER SETTER [facility] GC Amplified Probe Negative Negative 06/19/2012 12:31 PM BOILER SETTER [facility] Urine specimen (specimen) URINE / Unknown 06/17/2012 3:21 PM BOILER SETTER 06/17/2012 3:28 PM BOILER SETTER Liudmila Patel MD LAB - MICROBIO LOGY ORDERABLES Performing Organization Address City/State/[facility] Co de Phone Number [facility] [place] [address] * (ABNORMAL) CBC W AUTO DIFFERENTIAL (09/27/2009 1:30 PM CDT) Pathologist [facility] WBC 8.57 4.5 - 14.5 K/cumm [facility] RBC 4.03(L) 4.10 - 5.10 mill/cumm [facility] Hemoglobin 12.1 12.0 - 16.0 gm/dl [facility] Hematocrit 34.5(L) 36.0 - 47.0 % [facility] MCV 85.6 78.0 - 102.0 cu microns [facility] MCH 30.0 25.0 - 35.0 uug [facility] MCHC 35.1 31.0 - 37.0 % [facility] RDW 12.7 % [facility] MPV 12.4 fl [facility] Platelet Count 242 100 - 400 K/cumm [facility] Granulocytes % 64.5 24 - 66 % [facility] Lymphocytes % 28.9 22 - 61 % [facility] Monocytes % 5.0 3 - 15 % [facility] Eosinophils % 1.2 0 - 10 % [facility] Basophils % 0.4 0 - 1 % [facility] Comment Manual Diff Automated Diff Performed [facility] BLOOD SPECIMEN / Unknown 09/27/2009 1:30 PM CDT Liudmila Patel MD LAB - HEMATOLO GY ORDERABLES Performing Organization Address [facility]/State/[facility] Co de Phone Number [facility] Care Teams Salt Cutter Relationship Specialty Start Date End Date Tyrese Daniel MD [address] [place] [address] PCP - General 09/27/09
--- OUTSIDE RECORDS SUMMARY | 2024-07-29 23:02 | XMS_ITS | Clinical Summary ---
Author Organization [facility] Address [address] [place] [address] Care Team Providers Care Central Stores Attendant Name Role Phone Unavailable Primary Care Provider [...] on file Legal Sex Female 11:30 AM PARTS PICKER Gender Identity Not on file Sexual Orientation Not on file Last Filed Vital Signs Vital Sign Reading Time Taken Comments Blood Pressure 108/76 07/31/2022 8:15 AM PARTS PICKER Pulse 86 07/31/2022 8:15 AM PARTS PICKER Temperature - - Respiratory Rate - - Oxygen Saturation 99% 07/31/2022 8:15 AM PARTS PICKER Inhaled Oxygen Concentration - - Weight 88 kg (194 lb) 07/31/2022 8:15 AM PARTS PICKER Height 162.6 cm (5' 4 ) 07/31/2022 8:15 AM PARTS PICKER Body Mass Index 33.3 07/31/2022 8:15 AM PARTS PICKER Plan of Treatment Health Maintenance Due Date [...] W CT/NG, TRICH Routine 07/31/2022 9:02 AM PARTS PICKER Well woman exam with routine gynecological exam from Last 3 Months or Most Recently Relevant to Health Maintenance Results * (ABNORMAL) CERV/VAG CYTO AGE BASED SCREEN PAP W CT/NG, TRICH (07/31/2022 9:02 AM PARTS PICKER) COMMENT (PAP): [facility] Comment: This order for age-based cervical cancer and STI screening follows ACOG guidelines(PB 168, 140, TZL988). See individual assays for performing site location. CLINICAL INFORMATION [facility] Comment:None given LAST MENSTRUAL PERIOD [facility] Comment:NONE GIVEN PREV PAP: [facility] Comment:NONE GIVEN PREV BX: [facility] Comment:NONE GIVEN SOURCE [facility] Comment:Endocervix ADEQUACY: [facility] Comment: Satisfactory for evaluation. Endocervical/transformation zone component present. Age and/or menstrual status not provided GENERAL CATEGORIZATION: (A) [facility] Comment:EPITHELIAL CELL ABNO RMALITY PAP INTERP (A) [facility] Comment: Atypical Squamous Cells of Undetermined Significance (ASC-US) COMMENT (PAP TEST) [facility] Comment: This Pap test has been evaluated with computer assisted technology. Suggest clinical correlation and follow-up as clinically appropriate TUFTING MACHINE OPERATOR: [facility] Comment: MMW, CT(ASCP) CT screening location: [place] [address] Administration HARJIT [facility] PATHOLOGIST Marilia GranDataMyla Archer Comment: Ilia Reed M.D., Board Certified in Anatomic Pathology and Cytopathology. (electronic signature) EXPLANATORY NOTE [facility] [employer] InternationalMyla Archer Comment: EXPLANATORY NOTE: The Pap is [...] information. HPV E6/E7 Not Detected Not Detected [facility] Comment: Methodology: Brake Press Operator-Mediated Amplification This assay detects E6/E7 viral messenger RNA (mRNA) from 14 high-risk HPV types (16,18,31,33,35,39,45,51,52,56,58,59,66,68). Cervical sources are required for HPV testing. If a vaginal source from a patient who has had a total hysterectomy with removal of cervix was submitted, please contact the testing laboratory for alternative testing options. For additional information, please refer to http://[employer].G.ho.st/faq/XVH263f6 (This link if provided for information/ educational purposes only.) C TRAC RNA NOT DETECTED NOT DETECTED [facility] N.GONORRHOEAE RNA, TMA NOT DETECTED NOT DETECTED [facility] COMMENT INFECTIOUS DISEASE [facility] Comment: The analytical performance characteristics of this assay, when used to test SurePath(TM) specimens have been determined by [facility]. The modifications have not been cleared or approved by the FDA. This assay has been validated pursuant to the CLIA regulations and is used for clinical purposes. For additional information, please refer to https://[employer].G.ho.st/faq/IZC168 (This link is being provided for information/ educational purposes only.) TRICHOMONAS VAGINALIS,QUALITAT ARLEY,PAP VIAL NOT DETECTED NOT DETECTED [facility] Comment: The analytical performance characteristics of this assay have been determined by [facility]. The modifications have not been cleared or approved by the FDA. This assay has been validated pursuant to the CLIA regulations and is used for clinical purposes. For additional information, please refer to http://[employer].G.ho.st/ faq/Trichomonastma (This link is being provided for information/ educational purposes only.) Test Performed at: [facility] [address] ??[id number] Wing [facility] Genital SWAB OF ENDOCERVIX / Unknown 07/31/2022 9:02 AM PARTS PICKER 08/01/2022 3:48 AM PARTS PICKER us Alba Pablo DO PATHOLOGY/CYTOLOGY ORD ERABLES Final Result [facility] [phone] [facility] [id number] [place] [address] from Last 3 Months or Most Recently Relevant to Health Maintenance Insurance [employer] BLUE PREFERRED
--- OUTSIDE RECORDS SUMMARY | 2024-07-29 23:02 | XMS_ITS | Clinical Summary ---
Author Organization [facility] Address [facility] access hospital[facility]. [place], [place] [address] [place] [address] Care Team Providers Care Mold Repair Technician Name Role Phone Chantale, Estefany Nadira MATTHEWS [...] Comments Blood Pressure 131/95 08/05/2019 4:26 PM FLANGING OPERATOR Pulse 78 08/05/2019 4:26 PM FLANGING OPERATOR Temperature 36.8 ??C (98.3 ??F) 08/05/2019 4:26 PM CS T Respiratory Rate 20 08/05/2019 4:26 PM FLANGING OPERATOR Oxygen Saturation 99% 08/05/2019 4:26 PM FLANGING OPERATOR Inhaled Oxygen Concentration - - Weight 83 kg (182 lb 15.7 oz) 08/05/2019 4:26 PM FLANGING OPERATOR Height 162.6 cm (5' 4 ) 08/05/2019 4:26 PM FLANGING OPERATOR Body Mass Index 31.41 08/05/2019 4:26 PM FLANGING OPERATOR Plan of Treatment Health Maintenance Due [...] patient's age to complete this topic [place] [address] [place] [address] [employer] REIM[employer]SEMENTS [employer]DELARIA Care Teams Mold Repair Technician Relationship Specialty Start Date End Date Estefany Kenyon DO [address] [place] [address] PCP - General INTERNAL MEDICINE 03/11/19
--- OUTSIDE RECORDS SUMMARY | 2024-07-29 23:02 | XMS_ITS | Clinical Summary ---
Author Organization [facility] Address [address] [address] Care Team Providers Care Slurry Control Operator Helper Name Role Phone Tyrese Daniel MD Primary Care Provider [phone] [facility],non-owned Affiliates and Associated Physician Practices is amultiple site organization consisting of ambulatory clinics and hospital sitesin [place], [place], [place] and [place]. This disclosure is being madepursuant to the Care Everywhere program and may not contain all information available regarding this patient. Last updated 18.[employer] [facility] Allergies No known active allergies Medications * [...] 2011 as patient will be staying at [facility]. - Counseled about warning signs/adverse effects of [...] Comments Blood Pressure 110/70 06/17/2012 12:00 AM [facility] Pulse - - Temperature - - Respiratory Rate - - Oxygen Saturation - - Inhaled Oxygen Concentration - - Weight 70.9 kg (156 lb 6.4 oz) 06/17/2012 12:00 AM [facility] Height 159.8 cm (5' 2.91 ) 06/17/2012 12:[address] Body Mass Index 27.78 06/17/2012 12:00 AM [facility] Plan of Treatment Health Maintenance Due Date [...] age to complete this topic Care Teams Slurry Control Operator Helper Relationship Specialty Start Date End Date Tyrese Daniel MD [address] [place] [address] PCP - General 09/27/09
[2024-07-29] MEDS: ACETAMINOPHEN 325 MG TABLET 650 MG PO (23:42)
[2024-07-29] MEDS: KETOROLAC 15 MG/ML VIAL (*BKC) IV PUSH (23:43)
[2024-07-29] MEDS: LACTATED RINGERS 1,000 ML 999 ML IV CONT (23:44)
[2024-07-29 23:50] VITALS: O2SAT 99
[2024-07-29 23:51] VITALS: PULSE 108; RESP 16; O2SAT 99
== END 2024-07-30 00:58 | disposition home or self-care (01) ==
PROVIDERS: Emergency Provider Physician Assistant; PCP Internal Medicine
DX: J10.1 Influenza due to other identified influenza virus with other respiratory manifestations (principal); Z20.822 Contact with and (suspected) exposure to COVID-19
CPT/HCPCS: 87637; 96361; 96374; 99284; A9270; J1885; J7120

== ENCOUNTER 2024-11-04 17:13 | Emergency (ER) | payer BC, SELFPAY ==
--- NOTE | 2024-11-04 17:24 | ED_ITS ---
HPI - Eye Problem General Chief complaint: Eye Problems Stated complaint: left eyelid swollen Time Seen by Provider: 11/04/24 17:43 Source: patient, RN notes reviewed and old records reviewed Mode of arrival: ambulatory Limitations: no limitations History of Present Illness HPI Narrative: 29-year-old female presents to the [facility] with complaints of left upper eyelid swelling. States this started yesterday. No treatment prior to arrival Related Data Allergies Allergy/AdvReac Type Severity Reaction Status Date / Time No Known Allergies Allergy Unverified 11/27/22 14:36 Review of Systems Review of Systems: All systems reviewed & are unremarkable except as noted in HPI and below Constitutional: Constitutional: Reports no additional constitutional complaints Eyes: Eyes: Reports as per HPI, Denies other visual disturbances, Denies eye pain and Denies photophobia ENT: Reports system reviewed and no additional complaints, except as documented Cardiovascular: Cardiovascular: Reports no additional cardiovascular complaints, Denies chest pain and Denies dyspnea Respiratory: Respiratory: Reports no additional respiratory complaints, Denies chest congestion, Denies cough and Denies dyspnea Musculoskeletal: Musculoskeletal: Reports no additional musculoskeletal complaints Integumentary/Breasts: Skin/Breast: Reports system reviewed and no additional complaints, except as [facility]u [facility] Past Medical History Medical History (Updated 11/05/24 @ 00:01 by Background Daemon) No pertinent past medical history Comments At the time of my signature, I reviewed and agree with the nursing past medical, surgical, social, and family history. There is no relevant family history pertinent to the patient complaint. Exam Const: General: cooperative, healthy appearing, comfortable, no acute distress, well developed, alert and well nourished Nutritional Appearance: well nourished Orientation/consciousness: patient oriented x3 Limitations: no limitations HENMT: Head: normal to inspection Eyes: General: appearance normal, both eyes and all related structures Alignment and Position: alignment normal Eyelids: eyelid abnormality left upper eyelid inflamed cyst internal lid and swelling; without lacerations Conjunctivae: conjunctivae normal Pupils: Equal, round and reactive pupils present EOM: EOMs intact bilaterally Neck: Neck: normal visual inspection, full ROM, no lymphadenopathy and no meningeal signs Chest: Chest palpation & inspection: normal inspection of the chest Resp: Effort & Inspection: normal respiratory effort and able to speak in complete sentences Cardio: Rate: regular rate Skin: General skin exam: normal color and no rashes or lesions noted Neuro: General: patient oriented x3, gait normal, moves all extremities and no meningeal signs Cognition (Neuro): normal cognition Speech: normal speech Gait exam (Neuro): Normal gait present Extrem: General: normal to inspection, full ROM, capillary refill normal and normal gait Psych: Appearance: grossly normal and well kempt Mental Status: mental status grossly normal Speech and movement: Normal speech and movement present and Clear speech present Affect: normal affect Attitude: cooperative Course Course Level of Care: Express Care Visit Vital Signs Vital signs: Vital Signs Temperature 97.9 F 11/04/24 17:27 Pulse Rate 91 11/04/24 17:27 Respiratory Rate 14 11/04/24 17:27 Blood Pressure 141/81 H 11/04/24 17:27 Pulse Oximetry 100 11/04/24 17:27 Oxygen Delivery Room Air 11/04/24 17:27 Temperature 97.9 F 11/04/24 17:27 Pulse Rate 91 11/04/24 17:27 Respiratory Rate 14 11/04/24 17:27 Blood Pressure 141/81 H 11/04/24 17:27 Pulse Oximetry 100 11/04/24 17:27 Oxygen Delivery Room Air 11/04/24 17:27 Reviewed MDM - Eye Problem MDM Narrative Medical decision making narrative: Patient sitting in exam room. Patient is nontoxic, vitals stable. Patient presents with left upper eyelid swelling, stye is noted on exam. Denies any trauma, change in vision blurry vision. Patient appropriate for outpatient t reatment with close follow-up Discharge instructions reviewed with patient, as well as provided in writing per nursing staff. The instructions also include specific and strict return/GO TO THE ER as well as f/u information. All questions have been answered, and the patient deny any further questions with discharge and discharge plan. Some parts of this dictation were generated by voice recognition software and may contain typographical and/or grammatical inaccuracies. Differential Diagnosis Differential diagnosis: Likely corneal abrasion, conjunctivitis and other (Stye, cellulitis) Critical Care Time Critical Care Time Critical Care Time: No Discharge Plan Discharge Clinical Impression: Hordeolum of left eye Patient Disposition: Home Condition: Stable Instructions: Antibiotic Form, Stye (ED) Additional Instructions: Apply warm compresses. To use antibiotic ointment as prescribed You should follow-up with an eye doctor within the next 72 hours [facility]: [place]- [phone] [facility] [phone] [facility]- [phone] [place]: [facility] [phone] or [phone] [facility] [phone] [facility] [phone] [facility] [phone] [facility]- [phone] Patient Language: Irish Prescriptions: New erythromycin 5 mg/gram (0.5 %) ointment 0.5 inch LEFT EYE QID Qty: 3.5 0RF Follow-up/Referrals: Chantale,Estefany Muir, [Primary Care Provider] - 1 Week (express care follow up ) Stand Alone Forms: Work/School Release IP Time of Disposition: 17:50
[2024-11-04 17:27] VITALS: BP 141/81; PULSE 91; RESP 14; TEMP 36.6; O2SAT 100
== END 2024-11-04 18:00 | disposition home or self-care (01) ==
PROVIDERS: Emergency Provider Nurse Practitioner; PCP Internal Medicine
DX: H00.014 Hordeolum externum left upper eyelid (principal)
CPT/HCPCS: 99213; G0463